=== PATIENT | female | born 1990 ===

== ENCOUNTER 2020-02-25 14:54 | Emergency (ER) | payer MEDICAID, SELFPAY ==
[2020-02-25 14:55] VITALS: BP 128/89; PULSE 81; RESP 18; TEMP 37.1; O2SAT 100; BMI 25.2
--- NOTE | 2020-02-25 15:03 | ED_ITS ---
HPI - Female Genitourinary General: Chief complaint: Urogenital-Female Stated complaint: URINATION PROBLEMS Time Seen by Provider: 02/25/20 15:03 History of Present Illness: HPI Narrative: Patient is a 30-year-old female comes to the ED with right flank pain and trouble urinating. Past medical history of multiple kidney stones. Patient says symptoms started approximately 2 days ago. Pain is located in the right flank and also in the right lower abdom region. pain is rated 6 out of 10. She rates the pain she has taken Tylenol and ibuprofen over the past couple days to help with pain. She has had trouble urinating over the last 24 hours. Patient does admit to past IV meth use approximately 2 weeks ago. pt would not like any pain meds while here in the ED. pt denies any constipation or diarrhea. Associated symptoms: Deny abdominal pain, headache(s) or nausea Review of Systems Const: Denies: fever(s), chills or fatigue Eyes: Denies: change in vision or eye discomfort ENMT: Denies: throat pain, odynophagia, nasal discharge or nasal congestion Card: Denies: chest pain, palpitations, edema, swelling of feet/ankles, dyspn ea on exertion or orthopnea Resp: Denies: dyspnea, productive cough or non-productive cough GI: Denies: abdominal pain, nausea, vomiting, diarrhea, constipation or hematochezia : Reports: flank pain (right flank) and difficulty voiding; Denies: dysuria or hematuria Musc: Denies: neck pain, back pain or extremity swelling Skin/Breast: Denies: rash or new lesions Neuro: Denies: headache(s), numbness in extremities or weakness in extremities Physical Exam Const: COMMON NORMALS: no acute distress, patient oriented x3 and alert GENERAL APPEARANCE: cooperative, comfortable and anxious HENMT: COMMON NORMALS: normocephalic HEAD & SCALP: normocephalic MOUTH: Normal oral and palatal mucosa present THROAT: posterior oropharynx normal and uvula midline Eye: COMMON NORMALS: Equal, round and reactive pupils present PUPIL: Yes Equal, round and reactive pupils present Neck/C-Spine: COMMON NORMALS: supple GENERAL: Yes normal visual inspection Resp: COMMON NORMALS: normal respiratory effort, No retractions, No use of accessory muscles and clear to auscultation bilaterally AUSCULTATION: clear to auscultation bilaterally Cardio: COMMON NORMALS: regular rate, regular rhythm, S1 normal heart sound present, S2 normal heart sound present, No gallops present (Cardio), No clicks present (Cardio), No murmurs present (Cardio) and Peripheral pulses 2+ throughout RATE: regular rate RHYTHM: regular rhythm HEART SOUNDS: S1 normal heart sound present and S2 normal heart sound present PERIPHERAL PULSES: Peripheral pulses 2+ throughout GI: COMMON NORMALS: Normal to inspection, nondistended, normoactive bowel sounds present, Soft to palpation, non-tender and no masses PALPATION: Yes Soft to palpation : BLADDER/KIDNEY EXAM: Yes CVA tenderness on the right; not on the left Back/Pelvis: GENERAL BACK: Yes CVA tenderness Extremity: COMMON NORMALS: normal to inspection and no pedal edema Neuro: COMMON NORMALS: patient oriented x3 and moves all extremities SENSORIUM/ORIENTATION: Yes alert Skin: COMMON NORMALS: no rashes or lesions noted GENERAL SKIN EXAM: no rashes or lesions noted and dry skin Course Reevaluation(s): Reevaluation #1: Patient was unable to urinate on the unit. Straight cath was performed. After straight cath patient was reevaluated and felt like she had to urinate and tried to urinate again and was unable to. Patient then agreed for placement of a Campbell catheter and case management will be notified to put in a referral to urology for patient. Time: 17:16 Vital Signs: Vital signs: Vital Signs Temperature 98.7 F 02/25/20 14:55 Pulse Rate 72 02/25/20 16:00 Respiratory Rate 16 02/25/20 15:46 Blood Pressure 127/94 02/25/20 16:00 Pulse Oximetry 100 02/25/20 16:00 MDM - Female MDM Narrative: Medical decision making narrative: pt is a 30 y/o female that comes to the ED with right flank pain and RLQ abdominal pain. PMH of past kidney stones. pt was unable to urinate here in the ED but felt the urge to go. pt was straight cathed and had some relief. UA showed no signs of UTI. CT of abdomen showed no kidney stones or hydronephrosis. a lot of stool seen throughout bowel, but no obstruction. pt started feeling like her bladder was full again here in the ED and was unable to void. i gave pt an option of getting a campbell cath place d and have her follow up with Dr. Ferguson. Pt wanted to get campbell cath placed. I put in an order to case management for patient to be referred to Dr. ferguson. Nurse educated pt on cath care before discharge. return to ED precautions given. pt understood and agreed with plan. Lab Data: Attestation: I reviewed the patient's lab results. Labs: Lab Results 02/25/20 02/25/20 02/25/20 Range/Units 15:20 15:40 15:40 WBC Cancelled Corrected WBC Cancelled RBC Cancelled Hgb Cancelled Hct Cancelled MCV Cancelled MCH Cancelled MCHC Cancelled RDW Cancelled Plt Count Cancelled MPV Cancelled Gran % Cancelled Neut % (Auto) Cancelled Lymph % (Auto) Cancelled [place] % (Auto) Cancelled Eos % (Auto) Cancelled Baso % (Auto) Cancelled Neut # (Auto) Cancelled Lymph # (Auto) Cancelled [place] # (Auto) Cancelled Eos # (Auto) Cancelled Baso # (Auto) Cancelled Absolute Gran (aut o) Cancelled Nucleated RBC % (a uto) Cancelled Nucleated RBCs # Cancelled Sodium Cancelled Potassium Cancelled Chloride Cancelled Carbon Dioxide Cancelled Anion Gap Cancelled BUN Cancelled Creatinine Cancelled GFR Calculation Cancelled Glucose Cancelled Calculated Osmolal ity Cancelled Calcium Cancelled Total Bilirubin Cancelled AST Cancelled ALT Cancelled Alkaline Phosphata se Cancelled Total Protein Cancelled Albumin Cancelled Globulin Cancelled HCG, Qual Negative (Negative) Urine Color (Yellow) Urine Appearance (CLEAR) Urine pH (5-7) Ur Specific Gravit y (1.005-1.030) Urine Protein (Negative) Urine Glucose (UA) (Normal) Urine Ketones (Negative) Urine Blood (Negative) Urine Nitrate (Negative) Urine Bilirubin (Negative) Prot Sulfosalicyli c Acd (Negative) Urine Urobilinogen (Negative) mg/dL Ur Leukocyte Krys ase (Negative) 02/25/20 Range/Units 16:13 WBC Corrected WBC RBC Hgb Hct MCV MCH MCHC RDW Plt Count MPV Gran % Neut % (Auto) Lymph % (Auto) [place] % (Auto) Eos % (Auto) Baso % (Auto) Neut # (Auto) Lymph # (Auto) [place] # (Auto) Eos # (Auto) Baso # (Auto) Absolute Gran (aut o) Nucleated RBC % (a uto) Nucleated RBCs # Sodium Potassium Chloride Carbon Dioxide Anion Gap BUN Creatinine GFR Calculation Glucose Calculated Osmolal ity Calcium Total Bilirubin AST ALT Alkaline Phosphata se Total Protein Albumin Globulin HCG, Qual (Negative) Urine Color Yellow (Yellow) Urine Appearance Clear (CLEAR) Urine pH 8 H (5-7) Ur Specific Gravit y 1.010 (1.005-1.030) Urine Protein Neg (Negative) Urine Glucose (UA) Norm (Normal) Urine Ketones Negative (Negative) Urine Blood Neg (Negative) Urine Nitrate Negative (Negative) Urine Bilirubin Neg (Negative) Prot Sulfosalicyli c Acd Negative (Negative) Urine Urobilinogen Norm (Negative) mg/dL Ur Leukocyte Krys ase Negative (Negative) Imaging Data: CT Abd/Pel: Attestation: I personally reviewed and interpreted this imaging study as follows: Radiologist's impression: [place] [address] CT Scan Report Signed Patient: Devika Beckford Unit #: [id number] : 1990 Age/Sex: 30 / F ADM Date: 02/25/20 Loc: ER Room/Bed: Attending Dr: Ordering Provider/Ordering MD: Lino Jones Date of Service: 02/25/20 Procedure(s): CT kidney stone [id number] Accession Number(s): [id number] Report Number: [id number] PROCEDURE INFORMATION: Exam: CT Abdomen And Pelvis Without Contrast Exam date and time: 02/25/2020 3:22 PM Age: 30 years old Clinical indication: Abdominal pain; Flank; Right; Patient HX: History of cervical cancer, history of lithotripsy for previous renal calculous; Additional info: Trouble urinating with right flank pain TECHNIQUE: Imaging protocol: Computed tomography of the abdomen and pelvis without contrast. Radiation optimization: All CT scans at this facility use at least one of these dose optimization techniques: automated exposure control; mA and/or kV adjustment per patient size (includes targeted exams where dose is matched to clinical indication); or iterative reconstruction. COMPARISON: CR Abdomen 1 view [id number] 01/11/2017 1:13 PM RADIATION DOSE METRICS: Total DLP (mGy-cm): 615.22 FINDINGS: Lungs: Limited assessment lung bases without visible evidence of active cardiopulmonary process. Liver: Unremarkable. No mass. Gallbladder and bile ducts: Gallbladder contracted. No visible cholelithiasis. No visible intra or extrahepatic biliary ectasia. Pancreas: Normal. No ductal dilation. Spleen: Normal. No splenomegaly. Adrenals: Normal. No mass. Kidneys and ureters: No visible hydronephrosis, hydroureter, ureterolithiasis, or nephrolithiasis. Stomach and bowel: Heavy fecal residue consistent with constipation. Nonobstructive bowel pattern. No visible adynamic or reactive ileus. Appendix: The appendix is visualized and appears noninflamed. Intraperitoneal space: Unremarkable. No free air. No significant fluid collection. Vasculature: Unremarkable. No abdominal aortic aneurysm. Lymph nodes: Unremarkable. No enlarged lymph nodes. Bladder: Bladder unremarkable. No visible bladder stone. Reproductive: Unremarkable as visualized. Bones/joints: No visible active or acute osseous pathology. Mild posterior disc bulge L5/S1 without visible evidence of significant central canal stenosis. Soft tissues: Unremarkable. CT/CT kidney stone [id number] IMPRESSION: 1. Currently no visible evidence of acute abdominal or pelvic pathologic process. 2. No visible hydronephrosis, hydroureter, ureterolithiasis, or nephrolithiasis. 3. Constipation. Radiation Dose CTDIVOL = (mGy): DLP = 615.22 (mGy-cm) Dictated By: Laron Alarcon Signed By: Laron Alarcon Signed Date/Time: 02/25/20 1640 DD/ 1639 Discharge Plan Discharge Patient Disposition: Home Clinical Impression: Acute urinary retention Condition: Stable Discharge Orders: Discharge Order (Routine); Ordered 02/25/20 Ordered By: Lino Jones Discharge Diet: Regular Discharge Activity: Increase activity as tolerated Patient Instructions: Campbell Catheter Care, Campbell Catheter Placement and Care (ED), Acute Urinary Retention in Women (ED) Activity Restrictions/Additional Instructions: Follow-up with medical provider as directed. Case management should be contacting you in the next several days to set up an appointment with Dr. Ferguson. Return to the ER or your medical provider if condition worsens. Ple ase read and understand discharge instructions. If any questions, please ask. Coding Level of Care Code ED Top Lift Compressor for Chg Fwd Exam Comprehensive
--- NOTE | 2020-02-25 15:09 | CTR_ITS ---
PROCEDURE INFORMATION: Exam: CT Abdomen And Pelvis Without Contrast Exam date and time: 02/25/2020 3:22 PM Age: 30 years old Clinical indication: Abdominal pain; Flank; Right; Patient HX: History of cervical cancer, history of lithotripsy for previous renal calculous; Additional info: Trouble urinating with right flank pain TECHNIQUE: Imaging protocol: Computed tomography of the abdomen and pelvis without contrast. Radiation optimization: All CT scans at this facility use at least one of these dose optimization techniques: automated exposure control; mA and/or kV adjustment per patient size (includes targeted exams where dose is matched to clinical indication); or iterative reconstruction. COMPARISON: CR Abdomen 1 view [id number] 01/11/2017 1:13 PM RADIATION DOSE METRICS: Total DLP (mGy-cm): 615.22 FINDINGS: Lungs: Limited assessment lung bases without visible evidence of active cardiopulmonary process. Liver: Unremarkable. No mass. Gallbladder and bile ducts: Gallbladder contracted. No visible cholelithiasis. No visible intra or extrahepatic biliary ectasia. Pancreas: Normal. No ductal dilation. Spleen: Normal. No splenomegaly. Adrenals: Normal. No mass. Kidneys and ureters: No visible hydronephrosis, hydroureter, ureterolithiasis, or nephrolithiasis. Stomach and bowel: Heavy fecal residue consistent with constipation. Nonobstructive bowel pattern. No visible adynamic or reactive ileus. Appendix: The appendix is visualized and appears noninflamed. Intraperitoneal space: Unremarkable. No free air. No significant fluid collection. Vasculature: Unremarkable. No abdominal aortic aneurysm. Lymph nodes: Unremarkable. No enlarged lymph nodes. Bladder: Bladder unremarkable. No visible bladder stone. Reproductive: Unremarkable as visualized. Bones/joints: No visible active or acute osseous pathology. Mild posterior disc bulge L5/S1 without visible evidence of significant central canal stenosis. Soft tissues: Unremarkable. CT/CT kidney stone [id number] IMPRESSION: 1. Currently no visible evidence of acute abdominal or pelvic pathologic process. 2. No visible hydronephrosis, hydroureter, ureterolithiasis, or nephrolithiasis. 3. Constipation. Radiation Dose CTDIVOL = (mGy): DLP = 615.22 (mGy-cm)
[2020-02-25 15:46] VITALS: BP 138/75; PULSE 72; RESP 16; O2SAT 100
--- NOTE | 2020-02-25 15:59 | PC.NURSE ---
BLADDER SCANNER UNAVAILABLE. INFORMED PROVIDER SABA VERBALIZED UNDERSTANDING.
[2020-02-25 16:00] VITALS: BP 127/94; PULSE 72; O2SAT 100
[2020-02-25 16:02] LABS: HCG, Serum Qual Negative (Negative)
[2020-02-25 16:25] LABS: Add Urine Microscopic? NO
[2020-02-25 16:42] LABS: Bilirubin Urine Neg (Negative); Blood Urine Neg (Negative); Glucose Urine UA Norm (Normal); Ketones Urine Negative (Negative); Leukocyte Esterase Urine Negative (Negative); Nitrate Urine Negative (Negative); Protein Urine Neg (Negative); Sulfosalicylic Acid Urine Negative (Negative); Urine Appearance Clear (CLEAR); Urine Color Yellow (Yellow); Urobilinogen Urine Norm (Negative); pH Urine 8 (5-7)
--- NOTE | 2020-02-25 16:50 | PC.NURSE ---
IV PLACED BY ADRIAN JASSO
[2020-02-25 17:40] VITALS: BP 155/87; PULSE 67; RESP 16; O2SAT 99
--- NOTE | 2020-02-26 14:31 | DCPLANNER ---
multicultural manager had message to schedule a follow up appointment for patient with Dr. Doll. multicultural manager called the office of Dr. Doll, spoke with Zehra, gave clinic patients information. multicultural manager was told that patients information would be printed and reviewed. Clinic will call patient with appointment information.
== END 2020-02-25 17:45 | disposition home or self-care (01) ==
PROVIDERS: Emergency Provider Physician Assistant
DX: R33.9 Retention of urine, unspecified (principal)
CPT/HCPCS: 12345; 51701; 51702; 74176; 81003; 84703; 85025; 99283

== ENCOUNTER 2020-02-26 20:41 | Observation (INO) | payer MEDICAID, SELFPAY ==
[2020-02-26] VITALS (7 sets, daily range): BP systolic 110–151; BP diastolic 45–113; PULSE 50–71; RESP 14–20; TEMP 36.5–36.7; O2SAT 96–100; BMI 25.2
--- NOTE | 2020-02-26 20:57 | ED_ITS ---
HPI - Abdominal Pain General: Chief Complaint: Abdominal Pain Stated Complaint: ABD PAIN Time Seen by Provider: 02/26/20 20:45 History of Present Illness: HPI narrative: This patient is a 30-year-old female who presents today with abdominal pain and vomiting. She is currently in correction and started having symptoms on Wednesday or Wednesday. She has been having abdominal pain and vomiting off and on since then. She was seen here yesterday for this and also was not able to urinate. She had a catheter placed at that time and still has it in. She has a history of kidney stones but no kidney stones were seen on a CT scan yesterday. She denies any abdominal surgeries. She denies any history of bowel problems. She has not had a bowel movement since Wednesday or Wednesday. There was some constipation noted on the CT yesterday. She does not think she is had a fever. She is having quite a bit of burning pain across the lower part of her abdomen. MD elicited complaint: abdominal pain Pertinent past history: kidney stones Onset (ago): day(s) (4) Pain Consistency: constant Location: RLQ and LLQ Severity: severe Quality: cramping and burning Radiation: none Associated Symptoms: Reports constipation, nausea and vomiting; Denies chills and fever(s) Review of Systems General: Reports: 10 or more systems reviewed and unremarkable except in HPI and below Const: Denies: fever(s), chills, fatigue or malaise Eyes: Denies: change in vision ENMT: Denies: odynophagia Card: Denies: chest pain or swelling of feet/ankles Resp: Denies: dyspnea, productive cough or non-productive cough GI: Reports: abdominal pain, nausea, vomiting and constipation : Reports: difficulty voiding Musc: Denies: neck pain or back pain Skin/Breast: Denies: rash Neuro: Denies: headache(s), numbness in extremities or weakness in extremities Vasu/Lymph: Denies: easy bruising or easy bleeding Physical Exam Const: COMMON NORMALS: patient oriented x3, no limitations and alert GENERAL APPEARANCE: cooperative HENMT: HEAD & SCALP: normal to inspection FACE & SINUS: normal facial exam Eye: GENERAL EYE: appearance normal, both eyes and all related structures Neck/C-Spine: COMMON NORMALS: supple, no meningeal signs and no JVD Chest: COMMONS NORMALS: normal inspection of the chest Resp: COMMON NORMALS: normal respiratory effort, No use of accessory muscles and clear to auscultation bilaterally AUSCULTATION: clear to auscultation bilaterally Cardio: COMMON NORMALS: no JVD, regular rate, regular rhythm and No murmurs present (Cardio) RATE: regular rate RHYTHM: regular rhythm GI: COMMON NORMALS: Normal to inspection, nondistended, normoactive bowel sounds present and Soft to palpation INSPECTION: Yes normal to inspection AUSCULTATION: Yes normoactive bowel sounds PALPATION: Yes Soft to palpation and Yes Tenderness to palpation present (GI) (Severe, bilateral lower quadrants) Back/Pelvis: COMMON NORMALS: thoracic and lumbar spine normal to inspection Extremity: COMMON NORMALS: normal to inspection Neuro: COMMON NORMALS: patient oriented x3, moves all extremities, no focal motor deficits and no sensory deficits noted SENSORIUM/ORIENTATION: Yes alert MENINGEAL SIGNS: Yes no meningeal signs Psych: COMMON NORMALS: mental status grossly normal, cooperative and normal affect Skin: COMMON NORMALS: no rashes or lesions noted and turgor normal GENERAL SKIN EXAM: no rashes or lesions noted and turgor normal Course ED course: I reviewed the patient's CT and ER visit from yesterday. CT shows significant constipation but no obstruction or impaction. I suspect that is what is causing her pain. There was no other finding to suggest any other cause. We tried an enema in the ED but she was still not able to pass the stool. Hospitalist was consulted and will admit her for further management. Vital Signs: Vital signs: Vital Signs Temperature 98.1 F 02/26/20 20:51 Pulse Rate 50 L 02/26/20 22:14 Respiratory Rate 14 02/26/20 22:14 Blood Pressure 110/74 02/26/20 22:14 Pulse Oximetry 97 02/26/20 22:14 MDM - Abdominal Pain Lab Data: Labs: Lab Results 02/26/20 02/26/20 02/26/20 Range/Units 21:11 21:11 21:14 WBC 7.0 (4.0-10.0) 10^3/ uL RBC 4.82 (4.1-5.3) 10^6/u L Hgb 15.0 (11.5-15.3) g/dL Hct 44.8 (37.0-47.0) % MCV 92.9 (81-99) fL MCH 31.1 (28.0-34.0) pg MCHC 33.5 (30.0-36.0) g/dL RDW 12.5 (12.1-15.1) % Plt Count 201 (130-400) 10^3/c mm MPV 9.7 (7.4-10.4) fL Neut % (Auto) 41.8 % Lymph % (Auto) 46.6 % Centre % (Auto) 8.5 % Eos % (Auto) 2.8 % Baso % (Auto) 0.3 % Neut # (Auto) 2.93 (1.8-7.7) 10^3/u L Lymph # (Auto) 3.3 (0.8-4.8) 10^3/u L Centre # (Auto) 0.6 (0.2-0.9) 10^3/u L Eos # (Auto) 0.2 (0.0-0.8) 10^3/u L Baso # (Auto) 0.0 (0.0-0.1) 10^3/u L Nucleated RBC % (a uto) 0 % Nucleated RBCs # 0.0 /100WBC Sodium 140 (136-145) mmol/L Potassium 4.2 (3.5-5.1) mmol/L Chloride 106 (98-107) mmol/L Carbon Dioxide 22 (22-29) mmol/L Anion Gap 16.2 (5-19) BUN 9 (6-20) mg/dL Creatinine 0.8 (0.5-0.9) mg/dL GFR Calculation 83.1 L (90-130) mL/min Glucose 85 (65-115) mg/dL Calculated Osmolal ity 288 (285-295) mOsm/k g Calcium 9.5 (8.5-10.5) mg/dL Total Bilirubin 0.2 (0.15-1.2) mg/dL AST 14 (0-32) U/L ALT 12 (0-33) U/L Alkaline Phosphata se 66 (35-105) IU/L Total Protein 7.1 (6.6-8.7) g/dL Albumin 4.0 (3.5-5.2) g/dL Globulin 3.1 (1.3-4.6) g/dL Lipase 37 (13-60) U/L Urine Color Yellow (Yellow) Urine Appearance Cloudy (CLEAR) Urine pH 8 H (5-7) Ur Specific Gravit y 1.015 (1.005-1.030) Urine Protein Neg (Negative) Urine Glucose (UA) Norm (Normal) Urine Ketones Negative (Negative) Urine Blood Neg (Negative) Urine Nitrate Negative (Negative) Urine Bilirubin Neg (Negative) Prot Sulfosalicyli c Acd Negative (Negative) Urine Urobilinogen Norm (Negative) mg/dL Ur Leukocyte Krys ase Negative (Negative) Urine RBC 5-10 H (0-2) /hpf Urine WBC 0-4 H (0-5) /hpf Ur Squamous Epith Cells 0-4 H (0-5) /hpf Amorphous Sediment 2+ /hpf Urine Bacteria Trace (NONE) /hpf Urine Opiates Scre en (Negative) ng/mL Ur Barbiturates Sc reen (Negative) ng/mL Ur Phencyclidine S crn (Negative) ng/mL Ur Amphetamines Sc reen (Negative) ng/mL U Benzodiazepines Scrn (Negative) ng/mL Urine Cocaine Scre en (Negative) ng/mL U Marijuana (THC) Screen (Negative) ng/mL 02/26/20 Range/Units 21:14 WBC (4.0-10.0) 10^3/ uL RBC (4.1-5.3) 10^6/u L Hgb (11.5-15.3) g/dL Hct (37.0-47.0) % MCV (81-99) fL MCH (28.0-34.0) pg MCHC (30.0-36.0) g/dL RDW (12.1-15.1) % Plt Count (130-400) 10^3/c mm MPV (7.4-10.4) fL Neut % (Auto) % Lymph % (Auto) % Centre % (Auto) % Eos % (Auto) % Baso % (Auto) % Neut # (Auto) (1.8-7.7) 10^3/u L Lymph # (Auto) (0.8-4.8) 10^3/u L Centre # (Auto) (0.2-0.9) 10^3/u L Eos # (Auto) (0.0-0.8) 10^3/u L Baso # (Auto) (0.0-0.1) 10^3/u L Nucleated RBC % (a uto) % Nucleated RBCs # /100WBC Sodium (136-145) mmol/L Potassium (3.5-5.1) mmol/L Chloride (98-107) mmol/L Carbon Dioxide (22-29) mmol/L Anion Gap (5-19) BUN (6-20) mg/dL Creatinine (0.5-0.9) mg/dL GFR Calculation (90-130) mL/min Glucose (65-115) mg/dL Calculated Osmolal ity (285-295) mOsm/k g Calcium (8.5-10.5) mg/dL Total Bilirubin (0.15-1.2) mg/dL AST (0-32) U/L ALT (0-33) U/L Alkaline Phosphata se (35-105) IU/L Total Protein (6.6-8.7) g/dL Albumin (3.5-5.2) g/dL Globulin (1.3-4.6) g/dL Lipase (13-60) U/L Urine Color (Yellow) Urine Appearance (CLEAR) Urine pH (5-7) Ur Specific Gravit y (1.005-1.030) Urine Protein (Negative) Urine Glucose (UA) (Normal) Urine Ketones (Negative) Urine Blood (Negative) Urine Nitrate (Negative) Urine Bilirubin (Negative) Prot Sulfosalicyli c Acd (Negative) Urine Urobilinogen (Negative) mg/dL Ur Leukocyte Krys ase (Negative) Urine RBC (0-2) /hpf Urine WBC (0-5) /hpf Ur Squamous Epith Cells (0-5) /hpf Amorphous Sediment /hpf Urine Bacteria (NONE) /hpf Urine Opiates Scre en Negative (Negative) ng/mL Ur Barbiturates Sc reen Negative (Negative) ng/mL Ur Phencyclidine S crn Negative (Negative) ng/mL Ur Amphetamines Sc reen Positive H (Negative) ng/mL U Benzodiazepines Scrn Negative (Negative) ng/mL Urine Cocaine Scre en Negative (Negative) ng/mL U Marijuana (THC) Screen Positive H (Negative) ng/mL Discharge Plan Discharge Prescriptions: No Action No Known Home Medications RF: 0 Coding Level of Care Code ED Telephone Maintenance Mechanic for Chg Fwd Exam Comprehensive
[2020-02-26] MEDS: ondansetron 2 mg/ML SDV 2 mL 4 MG IVP ×2 (21:17→22:50)
[2020-02-26] MEDS: sodium chloride 0.9% 1,000 ML 999 ML IV (21:17)
[2020-02-26] MEDS: morphine 4 mg/mL SDV 1 mL IVP (21:17)
[2020-02-26 21:21] LABS: Basophils % 0.3 %; Eosinophils # 0.2 10^3/uL (0.0-0.8); Eosinophils % 2.8 %; Hematocrit 44.8 % (37.0-47.0); Lymphocytes # 3.3 10^3/uL (0.8-4.8); Lymphocytes % 46.6 %; Mean Corpuscular HGB Conc 33.5 g/dL (30.0-36.0); Mean Corpuscular Hemoglobin 31.1 pg (28.0-34.0); Mean Corpuscular Volume 92.9 fL (81-99); Mean Platelet Volume 9.7 fL (7.4-10.4); Monocytes # 0.6 10^3/uL (0.2-0.9); Monocytes % 8.5 %; Neutrophils # 2.93 10^3/uL (1.8-7.7); Neutrophils % 41.8 %; Nucleated Red Blood Cells % 0 %; Platelet Count 201 10^3/cmm (130-400); Red Blood Count 4.82 10^6/uL (4.1-5.3); Red Cell Distribution Width 12.5 % (12.1-15.1)
[2020-02-26 21:48] LABS: Alanine Aminotransferase 12 U/L (0-33); Alkaline Phosphatase 66 IU/L (35-105); Anion Gap 16.2 (5-19); Aspartate Amino Transferase 14 U/L (0-32); Blood Urea Nitrogen 9 mg/dL (6-20); Calcium 9.5 mg/dL (8.5-10.5); Carbon Dioxide 22 mmol/L (22-29); Chloride 106 mmol/L (98-107); Globulin 3.1 g/dL (1.3-4.6); Glomerular Filtration Rate 83.1 mL/min (90-130); Glucose 85 mg/dL (65-115); Lipase 37 U/L (13-60); Osmolality Calculated 288 mOsm/kg (285-295); Potassium 4.2 mmol/L (3.5-5.1); Sodium 140 mmol/L (136-145); Total Bilirubin 0.2 mg/dL (0.15-1.2); Total Protein 7.1 g/dL (6.6-8.7)
[2020-02-26 22:17] LABS: Add Urine Microscopic? YES; Amorphous Sediment Urine 2+ /hpf; Bacteria Urine TRACE /hpf; Bilirubin Urine Neg (Negative); Blood Urine Neg (Negative); Glucose Urine UA Norm (Normal); Ketones Urine Negative (Negative); Leukocyte Esterase Urine Negative (Negative); Nitrate Urine Negative (Negative); Protein Urine Neg (Negative); Specific Gravity, Urine 1.015 (1.005-1.030); Squamous Epithelial Cell Urine 0-4 /hpf (0-5); Sulfosalicylic Acid Urine Negative (Negative); Urine Appearance Cloudy (CLEAR); Urine Color Yellow (Yellow); Urobilinogen Urine Norm (Negative); WBC Urine 0-4 /hpf (0-5); pH Urine 8 (5-7)
[2020-02-26 22:33] LABS: Amphetamines Screen Urine Positive (Negative); Barbiturates Screen Urine Negative (Negative); Benzodiazepines Screen Urine Negative (Negative); Cocaine Screen Urine Negative (Negative); Opiate Screen Urine Negative (Negative); PCP Screen Urine Negative (Negative); THC Screen Urine Positive (Negative)
--- NOTE | 2020-02-26 22:53 | PM.HP ---
Providers/Chief Complaint Chief Complaint: ABD PAIN History of Present Illness Devika Beckford is a 30 year old female who does not have significant past medical history came in today after intractable vomiting. Patient was seen in the ER yesterday for abdominal pain, acute urinary tension was diagnosed, she was discharged back to half-way with a Randle catheter, today she returns because of intractable vomiting, she has not noticed any fever, her last bowel movement was 3 days ago, she has been having very small bowel movements, she denies history of hypothyroidism, use of opioids. Today she has had multiple bouts of emesis which necessitated her visit back to the hospital. Diagnosis in the ER revealed normal hemodynamics, CT abdomen revealed severe stool burden, rectal vault is empty, enema was given in the ER without much success CBC, BMP normal, drug screen positive for amphetamines and marijuana She will be admitted because of intractable vomiting and severe constipation Review of Systems Const: Denies: fever(s) or chills Eyes: Denies: change in vision ENMT: Denies: throat pain Card: Denies: chest pain Resp: Denies: dyspnea GI: Reports: abdominal pain, nausea, vomiting and constipation : Denies: flank pain or difficulty voiding Musc: Denies: neck pain Skin/Breast: Denies: rash Neuro: Denies: headache(s) Psych: Denies: anxiety Endo: Denies: polyuria Vasu/Lymph: Denies: easy bruising All/Imm: Denies: urticaria Medications/Allergies Home Medications Medication Instructions Recorded Confirmed Last Taken Type No Known Home Medications 02/26/20 02/26/20 Unknown History Allergies Allergy/AdvReac Type Severity Reaction Status Date / Time amoxicillin Allergy ALGY-Anaphy Verified 02/25/20 15:00 laxis clindamycin Allergy ALGY-Anaphy Verified 02/25/20 15:00 laxis Penicillins Allergy ALGY-Anaphy Verified 02/25/20 15:00 laxis PFSH Acute PFSH: Medical History Migraine headache Nephrolithiasis Surgical History H/O lithotripsy No history of previous surgery Family History (Updated 02/26/20 @ 23:22 by Walter Hawk MD) Other Hypertension Social History (Updated 02/26/20 @ 23:22 by Walter Hawk MD) Smoking and tobacco status: current every day smoker cigarettes [ Other cigarette details: 1 pack/day ] Alcohol intake: never Substance/Drug Use: current Substance/Drug use type: Marijuana and Methamphetamine Household members: other Details: Currently incarcerated Vitals/I&O/Wt Last Vital Signs Temp 98.1 F 02/26/20 20:51 Pulse 50 L 02/26/20 22:14 Resp 14 02/26/20 22:14 BP 110/74 02/26/20 22:14 Pulse Ox 97 02/26/20 22:14 Weight last 48 hrs Weight 62.596 kg Physical Exam Narrative: EXAM NARRATIVE: Young female without any active distress lying comfortably in her bed S1, S2 noted cardiovascular Abdomen soft, nontender bowel sound present in all quadrants, Neurologically nonfocal exam EOMI, PERRLA GCS 15 Skin does not show any gangrene or ulcer Saturating well on room air Appropriate mood and affect Lungs are clear to auscultation Data : 02/26/20 21:11 02/26/20 21:11 A&P Assessment and plan (1) Constipation: Status: Acute (2) Acute urinary retention: Status: Acute (3) Intractable vomiting: Status: Acute Additional A&P Information Severe constipation causing urinary retention We will check TSH Reglan, bowel regimen for constipation No need of NG tube placement for now No ileus identified on CT abdomen I am suspecting IBS with underlying history of polysubstance abuse U tox positive for amphetamines and marijuana We will try 1 more lactulose enema in the morning Acute urine tension secondary to constipation I would recommend removing Randle catheter and voiding trial in the morning before her discharge back to the half-way History of nephrolithiasis with lithotripsy x3 Hematuria noted on UA, no active complaint no hydronephrosis Full code Regular diet DVT prophylaxis not needed as she is low risk Attestations Medical Necessity Statement*: Anticipating stay in the hospital to be less than 2 midnights currently need IV fluid resuscitation for intractable vomiting, severe constipation and voiding trial Time Spent in Patient Care: (>than 50% of time spent in counselling and/or direct pt care on unit). 50mins Coding Level of Care Code Acute Due Diligence Coordinator for Valeriano Estrada Diagnoses Constipation K59.00 Acute urinary retention R33.8 Intractable vomiting R11.10
[2020-02-27] VITALS: BP 134/88; PULSE 61; RESP 19; TEMP 36.4; O2SAT 99
[2020-02-27] MEDS: dextrose 5%-lactated ringers 1,000 ML 30 ML IV (00:15)
[2020-02-27] MEDS: metoclopramide 5 mg/mL SDV 2 mL IVP (00:25)
[2020-02-27 04:00] VITALS: BP 111/69; PULSE 68; RESP 20; TEMP 36.5; O2SAT 98
[2020-02-27 06:35] LABS: Anion Gap 12.8 (5-19); Blood Urea Nitrogen 10 mg/dL (6-20); Calcium 8.5 mg/dL (8.5-10.5); Carbon Dioxide 24 mmol/L (22-29); Chloride 108 mmol/L (98-107); Glucose 82 mg/dL (65-115); Osmolality Calculated 290 mOsm/kg (285-295); Potassium 3.8 mmol/L (3.5-5.1); Sodium 141 mmol/L (136-145)
[2020-02-27] MEDS: polyethylene glycol 3350 Pkt 17 gm PO (07:28)
[2020-02-27] MEDS: sennosides-docusate Tablet 1 TAB PO (07:28)
[2020-02-27] MEDS: ondansetron 2 mg/ML SDV 2 mL 4 MG IVP (07:28)
[2020-02-27 08:00] VITALS: BP 124/80; PULSE 75; RESP 16; TEMP 36.6; O2SAT 98
--- NOTE | 2020-02-27 08:49 | PC.NURSE ---
Patient complains of nausea. Zofran given for nausea. Patient stated she had a BM on Wednesday or Wednesday but not sure which. Patient stated pain in 2. Patient repositioned self. patient requested a call be made to her Mother Echo [phone]. Call transferred to patient's room as requested. Call light within reach and bedside table within reach.
[2020-02-27 08:53] LABS: Thyroid Stimulating Hormone 2.59 uIU/mL (0.27-4.20)
--- NOTE | 2020-02-27 11:05 | PC.NURSE ---
Patient had xlarge BM following enema and is requesting to be discharged. Supervisor [employer]ing [employer] St[employer] notified Dr Stephenson.
--- NOTE | 2020-02-27 11:09 | P.DS_ITS ---
Discharge Providers Date of Admission: 02/26/20 22:53 Date of Discharge: February 27, 2020 Attending Provider at Admission: Walter Hawk MD Attending Provider at Discharge: Kameron Stephenson Diagnoses at Discharge Discharge Diagnosis (1) Constipation: Status: Acute (2) Acute urinary retention: Status: Acute (3) Intractable vomiting: Status: Acute Reason for Visit Reason for Visit: ABD PAIN Hospital Course Hospital Course: 30-year-old lady with history of migraine headache, nephrolithiasis, recovering from history of drug use, current smoker, was brought from [facility] for reassessment after was previously assessed in ER the day before due to abdominal pain, urinary retention for which Randle catheter was placed and she returned to [facility], however, developed intractable vomiting, although without any fever. Last bowel movement was 3 days prior. Having very small bowel movements. TSH was checked and was normal. No history of hypothyroidism. CT abdomen pelvis renal stone protocol without contrast r evealed no stone or hydronephrosis, no acute findings but severe stool burden with empty rectal vault. No bowel movement after enema given in ER. She was kept for observation in the hospital for bowel pseudoobstruction. She tolerated regular diet breakfast, without any further vomiting and is requesting to be discharged. Randle catheter was removed and she was able to urinate. After an additional enema she had a large bowel movement. She was feeling much better. Diet is continued and after lunch if she is still doing well may return home. We had a long discussion about abstaining from drug use, as well as strategies on minimizing recurrence of constipation. She is instructed to follow up with a primary care provider regarding both. She stated previously used to take medication for constipation but cannot remember what it was. Physical Exam Const: COMMON NORMALS: no acute distress and patient oriented x3 EXAM LIMITATIONS: altered mental status ORIENTATION/CONSCIOUSNESS: Yes awake HENMT: COMMON NORMALS: oropharynx normal Neck/C-Spine: COMMON NORMALS: no JVD Resp: COMMON NORMALS: normal respiratory effort and clear to auscultation bilaterally AUSCULTATION: clear to auscultation bilaterally Cardio: COMMON NORMALS: no JVD, regular rhythm, S1 normal heart sound present, S2 normal heart sound present and No murmurs present (Cardio) RHYTHM: regular rhythm HEART SOUNDS: S1 normal heart sound present and S2 normal heart sound present GI: COMMON NORMALS: Normal to inspection, nondistended, normoactive bowel sounds present, Soft to palpation and non-tender PALPATION: Yes Soft to palpation Extremity: COMMON NORMALS: no joint enlargement and no pedal edema Neuro: COMMON NORMALS: patient oriented x3 and moves all extremities Skin: COMMON NORMALS: no rashes or lesions noted GENERAL SKIN EXAM: no rashes or lesions noted Discharge Data Data Completed and Pending: Labs from last 24 hours 02/27/20 02/27/20 02/26/20 04:05 04:05 21:14 WBC RBC Hgb Hct MCV MCH MCHC RDW Plt Count MPV Neut % (Auto) Lymph % (Auto) [place] % (Auto) Eos % (Auto) Baso % (Auto) Neut # (Auto) Lymph # (Auto) [place] # (Auto) Eos # (Auto) Baso # (Auto) Nucleated RBC % (a uto) Nucleated RBCs # Sodium 141 Potassium 3.8 Chloride 108 H Carbon Dioxide 24 Anion Gap 12.8 BUN 10 Creatinine 0.7 GFR Calculation 97.0 Glucose 82 Calculated Osmolal ity 290 Calcium 8.5 Total Bilirubin AST ALT Alkaline Phosphata se Total Protein Albumin Globulin Lipase TSH 2.59 Urine Color Urine Appearance Urine pH Ur Specific Gravit y Urine Protein Urine Glucose (UA) Urine Ketones Urine Blood Urine Nitrate Urine Bilirubin Prot Sulfosalicyli c Acd Urine Urobilinogen Ur Leukocyte Krys ase Urine RBC Urine WBC Ur Squamous Epith Cells Amorphous Sediment Urine Bacteria Urine Opiates Scre en Negative Ur Barbiturates Sc reen Negative Ur Phencyclidine S crn Negative Ur Amphetamines Sc reen Positive H U Benzodiazepines Scrn Negative Urine Cocaine Scre en Negative U Marijuana (THC) Screen Positive H 02/26/20 02/26/20 02/26/20 21:14 21:11 21:11 WBC 7.0 RBC 4.82 Hgb 15.0 Hct 44.8 MCV 92.9 MCH 31.1 MCHC 33.5 RDW 12.5 Plt Count 201 MPV 9.7 Neut % (Auto) 41.8 Lymph % (Auto) 46.6 [place] % (Auto) 8.5 Eos % (Auto) 2.8 Baso % (Auto) 0.3 Neut # (Auto) 2.93 Lymph # (Auto) 3.3 [place] # (Auto) 0.6 Eos # (Auto) 0.2 Baso # (Auto) 0.0 Nucleated RBC % (a uto) 0 Nucleated RBCs # 0.0 Sodium 140 Potassium 4.2 Chloride 106 Carbon Dioxide 22 Anion Gap 16.2 BUN 9 Creatinine 0.8 GFR Calculation 83.1 L Glucose 85 Calculated Osmolal ity 288 Calcium 9.5 Total Bilirubin 0.2 AST 14 ALT 12 Alkaline Phosphata se 66 Total Protein 7.1 Albumin 4.0 Globulin 3.1 Lipase 37 TSH Urine Color Yellow Urine Appearance Cloudy Urine pH 8 H Ur Specific Gravit y 1.015 Urine Protein Neg Urine Glucose (UA) Norm Urine Ketones Negative Urine Blood Neg Urine Nitrate Negative Urine Bilirubin Neg Prot Sulfosalicyli c Acd Negative Urine Urobilinogen Norm Ur Leukocyte Krys ase Negative Urine RBC 5-10 H Urine WBC 0-4 H Ur Squamous Epith Cells 0-4 H Amorphous Sediment 2+ Urine Bacteria Trace Urine Opiates Scre en Ur Barbiturates Sc reen Ur Phencyclidine S crn Ur Amphetamines Sc reen U Benzodiazepines Scrn Urine Cocaine Scre en U Marijuana (THC) Screen Vitals: Last Vital Signs Temp 97.9 F 02/27/20 08:00 Pulse 75 02/27/20 08:00 Resp 16 02/27/20 08:00 BP 124/80 02/27/20 08:00 Pulse Ox 98 02/27/20 08:00 Discharge Plan Discharge Patient Disposition: Home Condition: Stable Prescriptions: New polyethylene glycol 3350 17 gram Powder In Packet 17 g PO BID Qty: 60 RF: 0 Metamucil 3.4 gram/5.4 gram powder 1 tbsp PO DAILY Qty: 660 RF: 0 Discharge Orders: Discharge Order (Routine); Ordered 02/27/20 Ordered By: Kameron Stephenson Referrals: Your, primary provider [Other] - 4-7 days Discharge Diet: Advance as tolerated and As Directed Discharge Activity: Increase activity as tolerated Activity Restrictions/Additional Instructions: Abstain from any amphetamine or other drug use which may in addition to sevre constipation lead to heart attack, stroke, and ischemia in other parts of the body including bowel and other complications. Include lots of fruits and vegetables in her diet. Supplement fiber in diet. Avoid dehydration. Avoid episodes of constipation to prevent severe constipation. If you develop severe abdominal pain, any inability to tolerate food or drink by mouth, high fever, or other abnormal symptoms, seek medical attention without delay. Discharge Attestations Time Spent in Discharge Care*: greater than 30 min Quality Metrics Clinical Quality Measures During this hospital stay, did patient experience: None Coding Level of Care Code Acute Paint Stockman for Chg Fwd Diagnoses Constipation K59.00 Acute urinary retention R33.8 Intractable vomiting R11.10
[2020-02-27 11:22] VITALS: BP 124/80; PULSE 75; RESP 16; TEMP 36.6; O2SAT 98
--- NOTE | 2020-02-27 13:01 | PC.NURSE ---
Patient release on a ROR muniz per [facility]. Paper signed by patient and faxed to [facility]'s office.
--- NOTE | 2020-02-27 13:14 | PC.NURSE ---
discharge instructions given to patient. patient verbalized understanding of instructions. patient requested call be made and transferred into her room for Michelle. Wrecker Driver called number given to specification writer and transferred call to room. patient waiting on ride home.
--- NOTE | 2020-02-27 14:13 | PC.NURSE ---
patient taken to private vehicle by staff.
[2020-02-27 14:14] VITALS: BP 124/80; PULSE 75; RESP 16; TEMP 36.6; O2SAT 98
--- NOTE | 2020-02-28 16:45 | PC.RESP ---
Smoking Cessation information sent to patient.
--- NOTE | 2020-02-29 14:46 | DCPLANNER ---
support manager called the office of Dr. oDll spoke with Zehra. Patient had been admitted to the hospital after being seen in the ED. support manager was told that clinic is waiting for patient to call clinic to schedule a follow up appointment.
== END 2020-02-27 14:15 | disposition home or self-care (01) ==
LOC: ER 20:57 → MEDSURG 23:02
PROVIDERS: Emergency Medicine; Admitting Provider Internal Medicine; Visit Provider Internal Medicine
DX: K59.00 Constipation, unspecified (principal); R33.8 Other retention of urine; R11.10 Vomiting, unspecified; F17.210 Nicotine dependence, cigarettes, uncomplicated; Z87.442 Personal history of urinary calculi; Z88.0 Allergy status to penicillin; Z88.1 Allergy status to other antibiotic agents
CPT/HCPCS: 12345; 36415; 45915; 80048; 80053; 80306; 81001; 83690; 84443; 85025; 96361; 96374; 96375; 99283; 99285; G0378; J2270; J2405; J2765; J7030

== ENCOUNTER → 2020-04-02 12:29 | Outpatient (BNVA) | payer MEDICAID, SELFPAY | PROVIDERS: PCP Physician Assistant; Visit Provider Nurse Practitioner Family | DX: R33.9 Retention of urine, unspecified (principal) | CPT/HCPCS: 80053; 81003 ==